=== PATIENT | male | born 1975 | race American Indian/Alaskan Native ===

== ENCOUNTER 2018-01-28 02:04 | Emergency (ER) | payer OTHER ==
--- NOTE | 2018-01-28 02:06 | ER Report ---
History and Physical Time Seen By MD: 02:06 HPI/ROS CHIEF COMPLAINT: Shortness of breath HISTORY OF PRESENT ILLNESS: Patient is a 42-year-old male here with complaints of 2 episodes of shortness of breath upon awakening. Patient reports that he woke up from sleep gasping for breath having air hunger and difficulty catching his breath causing him to panic. Patient denies similar episodes this however his does report that he has been starting this nor recently. Patient denies having underlying lung pathology, history of sleep apnea. Denies history of smoking, recent illness, fevers. REVIEW OF SYSTEMS: Constitutional: No fever, no chills. Eyes: No discharge. ENT: No sore throat. Cardiovascular: No chest pain, no palpitations. Respiratory: No cough, + shortness of breath upon waking. Gastrointestinal: No abdominal pain, no vomiting. Genitourinary: No hematuria. Musculoskeletal: No back pain. Skin: No rashes. Neurological: No headache. Allergies: Coded Allergies: No Known Drug Allergies (Unverified , 01/28/18) Constitutional Vital Sign - Last 24 Hours 01/28/18 02:09 Temp 99.3 Pulse 90 Resp 18 B/P (MAP) 140/95 Pulse Ox 97 O2 Delivery Room Air Physical Exam General Appearance: The patient is alert, has no immediate need for airway protection and no signs of toxicity. NAD Eyes: Pupils equal and round no pallor or injection. ENT, Mouth: Mucous membranes are moist. Respiratory: There are no retractions, lungs are clear to auscultation. Cardiovascular: Regular rate and rhythm. Gastrointestinal: Abdomen is soft and non tender, no masses, bowel sounds normal. Neurological: No focal deficits Skin: Warm and dry, no rashes. Musculoskeletal: Neck is supple non tender. Extremities are nontender, nonswollen and have full range of motion. DIFFERENTIAL DIAGNOSIS: After history and physical exam differential diagnosis was considered for shortness of breath including but not limited to pulmonary infectious process, COPD, asthma, pulmonary embolus and congestive heart failure. Medical Decision Making Data Points Result Diagram: 01/28/18 0235 01/28/18 0235 Laboratory Hematology Test 01/28/18 02:35 Red Blood Count 5.00 M/uL (4.00-5.60) Mean Corpuscular Volume 86.9 fL (80.0-96.0) Mean Corpuscular Hemoglobin 29.4 pg (26.0-33.0) Mean Corpuscular Hemoglobin Concent 33.8 g/dL (32.0-36.0) Red Cell Distribution Width 12.6 % (11.5-14.5) Mean Platelet Volume 10.8 fL (7.2-11.1) Neutrophils (%) (Auto) 50.3 % (39.4-72.5) Lymphocytes (%) (Auto) 36.0 % (17.6-49.6) Monocytes (%) (Auto) 9.1 % (4.1-12.4) Eosinophils (%) (Auto) 3.9 % (0.4-6.7) Basophils (%) (Auto) 0.7 % (0.3-1.4) Nucleated RBC Relative Count (auto) 0.1 /100WBC Neutrophils # (Auto) 3.3 K/uL (2.0-7.4) Lymphocytes # (Auto) 2.4 K/uL (1.3-3.6) Monocytes # (Auto) 0.6 K/uL (0.3-1.0) Eosinophils # (Auto) 0.3 K/uL (0.0-0.5) Basophils # (Auto) 0.0 K/uL (0.0-0.1) Nucleated RBC Absolute Count (auto) 0.01 K/uL D-Dimer Quantitative (PE/DVT) < 0.27 ug/ml (0-0.50) Blood Gas Patient Temperature Unknown DEGREES Venous Blood pH 7.44 (7.31-7.41) Venous Blood Partial Pressure CO2 37 mmHg Venous Blood Partial Pressure O2 45 mmHg Venous Blood HCO3 25 mmol/L Venous Blood Oxygen Saturation 83 % Venous Blood Base Excess 1 mmol/L Oxygen Liters/Minute Room air Sodium Level 137 mmol/L (137-145) Potassium Level 3.6 mmol/L (3.5-5.0) Chloride Level 101 mmol/L (98-107) Carbon Dioxide Level 25 mmol/L (22-30) Blood Urea Nitrogen 17 mg/dl (9-21) Creatinine 1.00 mg/dl (0.66-1.25) Glomerular Filtration Rate Calc > 60.0 Random Glucose 118 mg/dl (75-110) Calcium Level 9.0 mg/dl (8.4-10.2) Total Bilirubin 0.4 mg/dl (0.2-1.3) Aspartate Amino Transf (AST/SGOT) 28 U/L (0-35) Alanine Aminotransferase (ALT/SGPT) 45 U/L (0-56) Alkaline Phosphatase 59 U/L (0-126) Troponin I < 0.012 ng/ml B-Type Natriuretic Peptide < 5 pg/ml (0-100) Total Protein 7.1 g/dl (6.3-8.2) Albumin 3.8 g/dl (3.5-5.0) Chemistry Test 01/28/18 02:35 White Blood Count 6.6 k/uL (4.5-11.0) Red Blood Count 5.00 M/uL (4.00-5.60) Hemoglobin 14.7 g/dL (14.0-18.0) Hematocrit 43.5 % (42.0-52.0) Mean Corpuscular Volume 86.9 fL (80.0-96.0) Mean Corpuscular Hemoglobin 29.4 pg (26.0-33.0) Mean Corpuscular Hemoglobin Concent 33.8 g/dL (32.0-36.0) Red Cell Distribution Width 12.6 % (11.5-14.5) Platelet Count 200 K/uL (150-450) Mean Platelet Volume 10.8 fL (7.2-11.1) Neutrophils (%) (Auto) 50.3 % (39.4-72.5) Lymphocytes (%) (Auto) 36.0 % (17.6-49.6) Monocytes (%) (Auto) 9.1 % (4.1-12.4) Eosinophils (%) (Auto) 3.9 % (0.4-6.7) Basophils (%) (Auto) 0.7 % (0.3-1.4) Nucleated RBC Relative Count (auto) 0.1 /100WBC Neutrophils # (Auto) 3.3 K/uL (2.0-7.4) Lymphocytes # (Auto) 2.4 K/uL (1.3-3.6) Monocytes # (Auto) 0.6 K/uL (0.3-1.0) Eosinophils # (Auto) 0.3 K/uL (0.0-0.5) Basophils # (Auto) 0.0 K/uL (0.0-0.1) Nucleated RBC Absolute Count (auto) 0.01 K/uL D-Dimer Quantitative (PE/DVT) < 0.27 ug/ml (0-0.50) Blood Gas Patient Temperature Unknown DEGREES Venous Blood pH 7.44 (7.31-7.41) Venous Blood Partial Pressure CO2 37 mmHg Venous Blood Partial Pressure O2 45 mmHg Venous Blood HCO3 25 mmol/L Venous Blood Oxygen Saturation 83 % Venous Blood Base Excess 1 mmol/L Oxygen Liters/Minute Room air Glomerular Filtration Rate Calc > 60.0 Calcium Level 9.0 mg/dl (8.4-10.2) Total Bilirubin 0.4 mg/dl (0.2-1.3) Aspartate Amino Transf (AST/SGOT) 28 U/L (0-35) Alanine Aminotransferase (ALT/SGPT) 45 U/L (0-56) Alkaline Phosphatase 59 U/L (0-126) Troponin I < 0.012 ng/ml B-Type Natriuretic Peptide < 5 pg/ml (0-100) Total Protein 7.1 g/dl (6.3-8.2) Albumin 3.8 g/dl (3.5-5.0) Coagulation Test 01/28/18 02:35 D-Dimer Quantitative (PE/DVT) < 0.27 ug/ml EKG/Imaging Imaging Location: [facility] - [place] Patient: Sara Laughlin : 1975 Visit/Account:[id number] [facility] [place] [facility] 01[facility]28/2018 2 VIEWS CHEST INDICATION: Sided onset of shortness of breath. COMPARISON: None available FINDINGS: The lungs are clear and are well aerated. No effusion or pneumothorax is seen. Heart size and mediastinal contours are normal. IMPRESSION: 1. No radiographic evidence of active disease. ED Course/Re-evaluation ED Course Patient is a 42-year-old male here with isolated episodes of dyspnea upon waking which started tonight causing patient anxiety. Patient does report that he recently started snoring per patient's but denies prior history of sleep apnea, smoking history, underlying lung pathology. Chest x-ray showed no acute pathology. CBC CMP were unremarkable. D-dimer and troponin were checked to rule out secondary pathology and both were unremarkable. Patient was advised to follow-up with his PCP in consider a sleep study to rule out sleep apnea or obstructive respiratory pathology. Patient was hemodynamically stable, maintaining oxygen saturations of 99% on room air, afebrile. Decision to Disposition Date: Jan 28, 2018 Decision to Disposition Time: 03:41 Depart Departure Latest Vital Signs Vital Signs Date Time Temp Pulse Resp B/P (MAP) Pulse Ox O2 Delivery O2 Flow Rate FiO2 01/28/18 02:09 99.3 90 18 140/95 97 Room Air Impression: Primary Impression: Shortness of breath Condition: Improved Disposition: HOME OR SELF-CARE Patient Instructions: Dyspnea (ED) Additional Instructions: Please follow-up with her family doctor in the next 3 days. Please consider having a sleep study completed to evaluate for sleep apnea, obstructive sleeping diseases. Please return if your symptoms worsen or fail to improve DANIELA LOPEZ DO Jan 28, 2018 02:06
[2018-01-28 03:00] LABS: PLATELET COUNT, AUTOMATED 200 K/uL (150-450)
[2018-01-28 03:30] VITALS: BP 116/83
--- NOTE | 2018-01-28 03:32 | RADIOLOGY IMAGING REPORT ---
[place] [facility] [place]: Sara Laughlin : 1975 MR: [id number] V: [id number] EXAM DATE: ORDERING PHYSICIAN: DANIELA LOPEZ TECHNOLOGIST: Location: [facility] - [place] Patient: Sara Laughlin : 1975 Visit/Account:[id number] Date of [facility]: 01/28/2018 2 VIEWS CHEST INDICATION: Sided onset of shortness of breath. COMPARISON: None available FINDINGS: The lungs are clear and are well aerated. No effusion or pneumothorax is seen. Heart size and mediast inal contours are normal. IMPRESSION: 1. No radiographic evidence of active disease. Report Dictated By: Luis Alfredo Sommer at 01/28/2018 3:27 AM Report E-Signed By: Luis Alfredo Sommer at 01/28/2018 3:29 AM WSN:[id number]
== END 2018-01-28 03:58 | disposition home or self-care (01) ==
LOC: ER 02:28
DX: R06.02 Shortness of breath (principal)
CPT/HCPCS: 36415; 71046; 82040; 82247; 82310; 82374; 82435; 82565; 82803; 82947; 83880; 84075; 84132; 84155; 84295; 84450; 84460; 84484; 84520; 85025; 85379; 99283